=== PATIENT | female | born 1970 | race Caucasian/White ===

== ENCOUNTER 2020-11-12 11:31 | Outpatient (CLI) | payer OTHER | END 2020-11-12 11:32 | disposition home or self-care (01) | LOC: CSHRAD 11:31 | PROVIDERS: ATTEND Psychiatry & Neurology Neurology | DX: M79.605 Pain in left leg (principal); M17.12 Unilateral primary osteoarthritis, left knee; M41.86 Other forms of scoliosis, lumbar region; M47.816 Spondylosis without myelopathy or radiculopathy, lumbar region | CPT/HCPCS: 72100 ==